=== PATIENT | female | born 1970 | race Caucasian/White ===

== ENCOUNTER 2021-07-25 17:21 | Emergency (ER) | payer OTHER ==
[~2021-07-25 17:21] MED LIST: BENTYL 20MG TAB20 MG PO; CLARINEX5 MG PO; CYCLOBENZAPRINE10 MG PO; DEXILANT60 MG PO; ESTRACE2 MG PO; LIORESAL TAB 1010 MG PO; NUCYNTA50 MG PO; SYNTHROID 25 M25 MCG PO; VERAPAMIL ER180 MG PO; VITAMIN D21250 MCG PO; ZOFRAN ODT 4 MG4 MG PO
[2021-07-25 18:33] LABS: HEMOGLOBIN 13.7 gm/dl (12.3-15.3); RED BLOOD COUNT 4.91 M/UL (4.00-5.10); WHITE BLOOD COUNT 8.1 K/UL (4.5-11.0)
== END 2021-07-25 21:56 | disposition home or self-care (01) ==
LOC: ER1 17:21
PROVIDERS: Physician Assistant
DX: R10.31 Right lower quadrant pain (principal); I10 Essential (primary) hypertension; E78.5 Hyperlipidemia, unspecified; E07.9 Disorder of thyroid, unspecified; Z88.0 Allergy status to penicillin; Z88.2 Allergy status to sulfonamides; Z88.8 Allergy status to other drugs, medicaments and biological substances
CPT/HCPCS: 80053; 81001; 85025; 96374; 96375; 99284; J1200; J2930; Q9967